=== PATIENT | female | born 1995 | race African-American/Black ===

== ENCOUNTER 2021-02-09 16:06 | Emergency (ER) | payer MEDICAID ==
[~2021-02-09] VITALS: Ht 170.2 cm; Wt 46.0 kg
[2021-02-09] MEDS ORDERED: IBUP-2029 MT (17:43)
[2021-02-09] MEDS ORDERED: AMOX-424 MT (17:43)
[2021-02-09] MEDS ORDERED: TETANUS, DIPHTHERIA, PERTUSSIS VAC/PF 0.5ML (>7YR OLD) IM ONE (17:45)
[2021-02-09] MEDS ORDERED: ACETAMINOPHEN 325MG TABLET PO ONE (17:45)
[2021-02-09 18:03] VITALS: BP 124/78
== END 2021-02-09 18:05 | disposition home or self-care (01) ==
LOC: ER 16:06
DX: M79.652 Pain in left thigh (principal); S71.112D Laceration without foreign body, left thigh, subsequent encounter; W54.0XXD Bitten by dog, subsequent encounter; Z98.890 Other specified postprocedural states
CPT/HCPCS: 81025; 90471; 90715; 99283

== ENCOUNTER 2021-04-28 12:11 | Emergency (ER) | payer MEDICAID ==
[~2021-04-28] VITALS: Ht 167.6 cm; Wt 44.0 kg
[~2021-04-28 12:11] MED LIST: AMOX-424 MT; IBUP-2029 MT
[2021-04-28 12:28] VITALS: BP 104/62
[2021-04-28] MEDS ORDERED: ALBU18HF2 IH (12:58)
[2021-04-28] MEDS ORDERED: GUAI-858 PO (12:58)
== END 2021-04-28 13:30 | disposition home or self-care (01) ==
LOC: ER 12:11
DX: U07.1 COVID-19 (principal); J20.9 Acute bronchitis, unspecified; Z98.890 Other specified postprocedural states
CPT/HCPCS: 87426; 99283